=== PATIENT | female | born 1990 | race Caucasian/White ===

== ENCOUNTER 2021-03-06 08:27 | Emergency (ER) | payer OTHER ==
[~2021-03-06] VITALS: Ht 167.6 cm; Wt 65.8 kg
== END 2021-03-06 14:40 | disposition home or self-care (01) ==
LOC: ER 08:27 → EDBD 09:56 → ER 09:56
DX: O02.1 Missed abortion (principal); Z3A.00 Weeks of gestation of pregnancy not specified; O26.891 Other specified pregnancy related conditions, first trimester